=== PATIENT | female | born 1970 | race Caucasian/White ===

== ENCOUNTER 2018-12-07 08:58 | Emergency (ER) | payer OTHER ==
[2018-12-07 09:07] VITALS: TEMP 98.1; BMI 23.0
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
--- NOTE | 2018-12-07 10:01 | EKG ---
Test Reason : Blood Pressure : / mmHG Vent. Rate : 096 BPM Atrial Rate : 096 BPM P-R Int : 130 ms QRS Dur : 090 ms QT Int : 368 ms P-R-T Axes : 012 032 033 degrees QTc Int : 464 ms POOR DATA QUALITY, INTERPRETATION MAY BE ADVERSELY AFFECTED NORMAL SINUS RHYTHM NORMAL ECG NO PREVIOUS ECGS AVAILABLE Confirmed by MD VELVET, CRISTIANA ([id number]) on 12/07/2018 10:01:15 AM Referred By: Confirmed By:CRISTIANA VERDIN MD
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
[2018-12-07] MEDS ORDERED: diazePAM 2 MG TABLET PO ONE (10:51)
[2018-12-07] MEDS ORDERED: diazePAM 2 MG TABLET ONE (11:09)
[2018-12-07 11:46] LABS: BASO % 0.8 % (0-2.0); EOS % 0.3 % (0-4.5); HEMATOCRIT 37.6 % (32.4-45.2); HEMOGLOBIN 12.8 GM/dL (10.7-15.3); LYMPH % 16.7 % (8-40); MCH 32.9 pg (25.7-33.7); MEAN CELL VOLUME 96.7 fl (80-96); MEAN PLT VOLUME 8.8 fl (7.5-11.1); MONO % 5.7 % (3.8-10.2); NEUT % 76.5 % (42.8-82.8); PLATELET COUNT 225 K/MM3 (134-434); RBC 3.89 M/mm3 (3.60-5.2); RDW 13.2 % (11.6-15.6); WHITE BLOOD COUNT 6.8 K/mm3 (4.0-10.0)
[2018-12-07 12:14] LABS: ALBUMIN 3.7 g/dl (3.4-5.0); BILIRUBIN,TOTAL 0.6 mg/dL (0.2-1); BLOOD UREA NITROGEN 15.3 mg/dL (7-18); CALCIUM 8.6 mg/dL (8.5-10.1); CREATININE 0.7 mg/dL (0.55-1.3); TOT PROT 6.5 g/dl (6.4-8.2)
[2018-12-07 12:51] VITALS: BP 130/82; PULSE 77
== END 2018-12-07 12:51 | disposition home or self-care (01) ==
LOC: JER 08:58
DX: R07.9 Chest pain, unspecified (principal); Z69.11 Encounter for mental health services for victim of spousal or partner abuse
CPT/HCPCS: 36415; 80053; 82550; 84484; 85025; 93005; 93010; 99284-25

== ENCOUNTER 2020-01-17 09:49 | Emergency (ER) | payer OTHER | END 2020-01-17 10:43 | disposition home or self-care (01) | LOC: JVIRT 09:49 | DX: Z03.818 Encounter for observation for suspected exposure to other biological agents ruled out (principal) | CPT/HCPCS: C9803; Q3014-GT; U0003 ==

== ENCOUNTER 2020-03-06 10:37 | Emergency (ER) | payer OTHER ==
--- OUTSIDE RECORDS SUMMARY | 2020-03-06 10:58 | XMS ---
:1970 Author Organization [facility] Support Name Relationship Address Phone AARON Unavailable [address] [place] [address] [employer] [place] [address] Re-disclosure Warning The records that you are about to access may contain information from federally- assisted alcohol or drug abuse programs. If such information is present, then the following federally mandated warning applies: This information has been disclosed to you from records protected by federal confidentiality rules (42 CFR part 2). The federal rules prohibit you from making any further disclosure of this information unless further disclosure is expressly permitted by the written consent of the person to whom it pertains or as otherwise permitted by 42 CFR part 2. A general authorization for the release of medical or other information is NOT sufficient for this purpose. The Federal rules restrict any use of the information to criminally investigate or prosecute any alcohol or drug abuse patient.The records that you are about to access may contain highly sensitive health information, the redisclosure of which is protected by Article 27-F of the [facility] Public Health law. If you continue you may haveaccess to information: Regarding HIV / AIDS; Provided by facilities licensed or operated by the [facility] Office of Mental Health; or Provided by the [facility] Office for People With Developmental Disabilities. If such information is present, then the following [facility] mandated warning applies: This information has been disclosed to you from confidential records which are protected by state law. State law prohibits you from making any further disclosure of this information without the specific written consent of the person to whom it pertains, or as otherwise permitted by law. Any unauthorized further disclosure in violation of state law may result in a fine or halfway sentence or both. A general authorization for the release of medical or other information is NOT sufficient authorization for further disclosure. Results ID Date Data Source [id number] 01/17/2020 05:30:00 PM EST [facility] Name Value Range Interpretation Description Data Sup porting Code Source(s) Document(s ) SARS [facility] coronavirus 2 RNA This lab was ordered by [facility] and reported by [facility]. Insurance Providers Payer name Policy type / Policy ID Covered Covered alliance party's Policy Plan Coverage type alliance party ID relationship to Lorenzana Information lorenzana
--- NOTE | 2020-03-06 11:54 | TELE ---
HPI Do you have fever,cough or shortness of breath?: No - General Reason For Visit: COVID 19 TESTING History Source: Patient (49 y/o F asymptomatic + COVID exposure ) Past History - Medical History Allergies/Adverse Reactions: Allergies Allergy/AdvReac Type Severity Reaction Status Date / Time No Known Allergies Allergy Verified 12/07/18 09:07 Home Medications: Ambulatory Orders NK [No Known Home Medication] 12/07/18 COPD: No - Immunization History Immunization Up to Date: Yes - Psycho-Social/Smoking History Smoking History: Never smoked Have you smoked in the past 12 months: No Review of Systems - Review of Systems Constitutional: No: Fever *Physical Exam - Physical Exam HEENT: positive: Normal Voice. negative: Muffled/Hoarse voice Respiratory/Chest: negative: Respiratory Distress - Medical Decision Making 03/06/20 11:54 Will test for COVID, discussed quarantine and follow up Virtual visit via telephone voice call greater than 5 minutes I have reviewed the pathophysiology with the patient. They are in agreement with the treatment plan and all questions were answered to their satisfaction. Understanding for follow-up without fail was also conveyed to the patient. Again they are in agreement. Patient will be quarantined until COVID test results. Pt with positive exposure to COVID Visit done through telephone voice greater than 5 minutes Discharge Diagnosis at time of Disposition: Exposure to COVID-19 virus - Referrals - Patient Instructions - Discharge Disposition: HOME Condition at time of Disposition: Stable
== END 2020-03-06 11:54 | disposition home or self-care (01) ==
LOC: JVIRT 10:37
DX: Z11.59 Encounter for screening for other viral diseases (principal)
CPT/HCPCS: G2012-GT

== ENCOUNTER 2020-04-17 14:24 | Emergency (ER) | payer OTHER | END 2020-04-17 15:34 | disposition home or self-care (01) | LOC: JVIRT 14:24 | DX: Z20.822 Contact with and (suspected) exposure to COVID-19 (principal) | CPT/HCPCS: C9803; G2012-GT; U0003 ==